=== PATIENT | female | born 1945 | race Caucasian/White ===

== ENCOUNTER → 2019-08-11 09:40 | Outpatient (CLI) | payer OTHER, SELFPAY ==
--- NOTE | 2019-08-11 | DI.US.S_ITS ---
LIMITED ULTRASOUND OF RIGHT BREAST: 08/11/2019 CLINICAL: Palpable right breast lumps. Comparison is made to exams dated: 08/11/2019 mammogram - [facility] and 12/26/2016 mammogram - [facility]. Real-time ultrasound of the right breast 12 o'clock region was performed on the area of interest. No discrete cystic or solid mass lesion identified in the area of palpable abnormality. IMPRESSION: NEGATIVE There is no sonographic evidence of malignancy. There is no abnormality seen in the right breast to correspond with the palpable abnormality at 12 o'clock in the sub-areolar depth, however, clinical followup is recommended. A 1 year screening mammogram is recommended. This exam was interpreted at Station ID: [id number]. Electronically Signed By: Cullen turner/:08/11/2019 10:56:36 letter sent: Clinical Evaluation Ultrasound BI-RADS: 1 Negative
--- NOTE | 2019-08-11 | DI.MG.S_ITS ---
BILATERAL DIGITAL DIAGNOSTIC MAMMOGRAM 3D/2D: 08/11/2019 CLINICAL: Right breast lump. Comparison is made to exam dated: 12/26/2016 mammogram - [facility]. The tissue of both breasts is heterogeneously dense. This may lower the sensitivity of mammography. No significant masses, calcifications, or other findings are seen in either breast. IMPRESSION: INCOMPLETE: NEEDS ADDITIONAL IMAGING EVALUATION There is no abnormality seen in the right breast to correspond with the palpable abnormality in the upper outer quadrant, however, ultrasound is recommended. This exam was interpreted at Station ID: [id number]. NOTE: For mammograms, a report in lay terms will be sent to the patient. Approximately 15% of breast malignancies will not be visualized mammographically. In the management of a palpable breast mass, a negative mammogram must not discourage biopsy of a clinically suspicious lesion. Electronically Signed By: Cullen Bourne M.D. ddtim/penrad:08/11/2019 10:46:46 ACR BI-RADS Category 0: Incomplete [id number]
== END ==
PROVIDERS: PCP Physician Assistant Medical; Referring Provider Physician Assistant Medical; Visit Provider Physician Assistant Medical
DX: R92.8 Other abnormal and inconclusive findings on diagnostic imaging of breast (principal); N63.11 Unspecified lump in the right breast, upper outer quadrant
CPT/HCPCS: 76642; 77066; G0279

== ENCOUNTER → 2022-12-31 13:02 | Outpatient (CLI) | payer OTHER, SELFPAY ==
--- NOTE | 2022-12-31 | DI.MRI.S_ITS ---
PROCEDURE: MR LUMBAR SPINE WO CON INDICATIONS: LUMBAR FORAMINAL STENOSIS TECHNIQUE: Noncontrast sagittal T1 spin echo and T2 fast echo, sagittal STIR, and T2 fast spin echo through the lumbar spine. In cases with scoliosis, additional coronal T2 fast spin echo may be performed. COMPARISON: None. FINDINGS: Image quality: Excellent. Alignment and Curvature: Moderate to severe levocurvature centered T12. Leftward listhesis of L1 on L2 and L2 on L3. Posterior rods and pedicle screws in L2, L4, and L5 results in significant metallic artifact. Posterior laminectomy L2 through L5. Old L1 inferior endplate compression. Bone Marrow: Marrow is of normal overall signal. No acute vertebral body compression fractures. Spinal Cord: Conus medullaris terminates at the lower T12 level. Visualized cord demonstrates normal signal and size. Paraspinous Soft Tissues: No paravertebral masses. T12-L1: No canal stenosis or significant foraminal stenosis. L1-L2: There is probably moderate canal stenosis. Question moderate right foraminal narrowing. Mild to moderate left foraminal narrowing. L2-L3: Question at least moderate right foraminal narrowing. Mild to moderate left foraminal narrowing. No central canal stenosis. L3-L4: Decompressed. No canal stenosis. No significant foraminal stenosis. L4-L5: Posterior decompression. No canal stenosis. No significant foraminal stenosis. L5-S1: Posterior decompression. No canal stenosis. Likely no significant foraminal stenosis. IMPRESSION: 1. There is extensive metal artifact affecting the images. 2. There is moderately severe levocurvature centered at T12. 3. Remote posterior multilevel decompression. 4. There is probably moderate canal stenosis at L1-L2. 5. Evaluation of foraminal narrowing is somewhat problematic. There is a question of moderate right foraminal narrowing at L1-L2 and at least moderate right foraminal narrowing at L2-L3. Comment: Consider CT lumbar spine to further evaluate the foramina. Dictated by: Jose Woods M.D. on 12/31/2022 at 16:29 Approved by: Jose Woods M.D. on 12/31/2022 at 16:36
== END ==
PROVIDERS: PCP Physician Assistant Medical; Referring Provider Acupuncturist; Visit Provider Acupuncturist
DX: M48.061 Spinal stenosis, lumbar region without neurogenic claudication (principal)
CPT/HCPCS: 72148

== ENCOUNTER → 2023-04-03 17:38 | Outpatient (CLI) | payer OTHER, SELFPAY ==
--- NOTE | 2023-04-03 | DI.MRI.S_ITS ---
PROCEDURE: MR CERVICAL SPINE WO CON INDICATIONS: Radiculopathy, cervical region TECHNIQUE: Noncontrast sagittal T1 spin echo and T2 fast spin echo, sagittal STIR, foraminal oblique sagittal T2 fast spin echo, and axial gradient echo or T2 fast spin echo through the cervical spine. COMPARISON: None. FINDINGS: Image quality: There is artifact associated with the metallic hardware. This examination is limited by involuntary motion artifact. Images are repeated, with some improvement. Alignment and Curvature: There is normal bony alignment. Bone Marrow: Marrow demonstrates normal overall signal. Spinal Cord: Visualized spinal cord has normal size and signal. No cerebellar tonsillar herniation. Paraspinous Soft Tissues: No paravertebral masses. Prevertebral soft tissues are normal in thickness. Postoperative change is seen anteriorly at least at C5-C6. C2-C3: A mild degree of generalized disc osteophyte complex is seen. There is moderate right-sided and mild left-sided facet hypertrophy. [id number] bilateral neural foraminal narrowing is seen. Mild central canal narrowing is seen. C3-C4: Moderate loss of disc height is seen. Loss of disc signal is seen. Moderate generalized disc osteophyte complex is seen. There is a central disc osteophyte protrusion. Moderate facet joint hypertrophy is seen. Moderate to severe bilateral neural foraminal narrowing is seen. At least moderate central canal narrowing is seen, with associated ventral cord flattening. C4-C5: At least moderate loss of disc height and disc signal can be seen. At least moderate disc osteophyte complex is seen. Moderate facet joint hypertrophy is seen. Moderate to severe bilateral neural foraminal narrowing is seen. Moderate to severe central canal narrowing is seen. There is flattening of the ventral spinal cord. C5-C6: At least moderate disc osteophyte complex is seen. Moderate facet joint hypertrophy is seen. There is at least moderate bilateral neural foraminal narrowing seen. Mild central canal narrowing is seen. C6-C7: At least moderate loss of disc height and disc signal can be seen. At least moderate disc osteophyte complex is seen, with a central disc osteophyte protrusion. At least moderate facet hypertrophy is seen. There is moderate to severe bilateral neural foraminal narrowing seen. Moderate central canal narrowing is seen. There is associated mass effect upon the ventral spinal cord. C7-T1: The disc height and disk signal are relatively well-preserved. A mild degree of generalized disc osteophyte complex is seen. Mild facet joint hypertrophy is seen. Mild to moderate bilateral neural foraminal narrowing is seen. No significant central canal narrowing is seen. IMPRESSION: Multiple levels of cervical spine degenerative change can be seen, which are worst at C3-C4 and at C4-C5. Anterior fixation hardware is seen at least at C5-C6. Dictated by: Bud Rudolph M.D. on 04/04/2023 at 11:22 Approved by: Bud Rudolph M.D. on 04/04/2023 at 11:28
== END ==
PROVIDERS: PCP Physician Assistant Medical; Referring Provider Acupuncturist; Visit Provider Acupuncturist
DX: M47.22 Other spondylosis with radiculopathy, cervical region; Z98.1 Arthrodesis status
CPT/HCPCS: 72141